=== PATIENT | female | born 1960 | race Caucasian/White ===

== ENCOUNTER 2018-07-17 08:12 | Observation (INO) | payer OTHER ==
--- NOTE | 2018-07-17 08:57 | ED ---
General Adult HPI - General Chief complaint: Chest Pain Stated complaint: Chest Pain Time Seen by Provider: 07/17/18 08:35 Source: patient, RN notes reviewed Mode of arrival: wheelchair Limitations: no limitations - History of Present Illness Initial comments: Patient is a pleasant 57-year-old female presenting to the emergency Department with complaints of chest discomfort. Patient has not felt well for the past couple patient has heaviness in her chest. Patient has had some chills and sweats. No nausea vomiting. No dyspnea. Patient does have a mild chronic cough which is unchanged. No leg pain or leg swelling. No history of similar symptoms previously. No radiation of discomfort. Discomfort is currently 5/10. - Related Data Home Medications Medication Instructions Recorded Confirmed ALPRAZolam [Xanax] 0.5 mg PO DAILY PRN 07/17/18 07/17/18 Citalopram Hydrobromide [CeleXA] 20 mg PO HS 07/17/18 07/17/18 Dm/Acetaminophen/Doxylamine [Vicks 15 ml PO Q6H PRN 07/17/18 07/17/18 Nyquil Cold-Flu Liquid] Allergies Allergy/AdvReac Type Severity Reaction Status Date / Time No Known Allergies Allergy Verified 07/17/18 09:24 Review of Systems ROS Statement: Those systems with pertinent positive or pertinent negative responses have been documented in the HPI. ROS Other: All systems not noted in ROS Statement are negative. Constitutional: Reports: chills. Denies: fever Eyes: Denies: eye pain ENT: Denies: ear pain Respiratory: Reports: as per HPI Cardiovascular: Reports: chest pain Endocrine: Denies: fatigue Gastrointestinal: Denies: abdominal pain Genitourinary: Denies: dysuria Musculoskeletal: Denies: back pain Skin: Denies: rash Neurological: Denies: weakness Past Medical History Past Medical History: No Reported History History of Any Multi-Drug Resistant Organisms: None Reported Past Surgical History: No Surgical Hx Reported Past Psychological History: Anxiety Smoking Status: Current every day smoker Past Alcohol Use History: None Reported Past Drug Use History: None Reported General Exam Limitations: no limitations General appearance: alert, in no apparent distress Head exam: Present: atraumatic Eye exam: Present: normal appearance Neck exam: Present: normal inspection Respiratory exam: Present: normal lung sounds bilaterally. Absent: chest wall tenderness Cardiovascular Exam: Present: regular rate, normal rhythm Expanded Peripheral pulses: 2+: Radial (R), Radial (L), Posterior Tibialis (R), Posterior Tibialis (L), Dorsalis Pedis (R), Dorsalis Pedis (L) GI/Abdominal exam: Present: soft. Absent: tenderness Extremities exam: Present: normal inspection. Absent: pedal edema, calf tenderness Neurological exam: Present: alert Psychiatric exam: Present: normal affect, normal mood Skin exam: Present: normal color Course Vital Signs 07/17/18 07/17/18 07/17/18 08:15 09:15 10:56 Temperature 98.6 F Pulse Rate 89 89 77 Respiratory 18 18 18 Rate Blood Pressure 135/78 171/97 134/79 O2 Sat by Pulse 96 97 98 Oximetry EKG Findings - EKG Comments: EKG Findings:: Normal sinus rhythm 86. MS 148. QRS 92. QT 374. QTC 447. Normal axis. Normal QRS. No acute ST change. Medical Decision Making - Medical Decision Making Patient reevaluated and resting comfortably in bed. Patient and family updated on results and plan. Case was discussed in detail with Dr. Hdez, who will admit for - Lab Data Result diagrams: 07/17/18 08:38 07/17/18 08:38 Lab Results 07/17/18 07/17/18 07/17/18 Range/Units 08:38 08:38 08:38 WBC 10.4 (3.8-10.6) k/uL RBC 4.83 (3.80-5.40) m/uL Hgb 14.9 (11.4-16.0) gm/dL Hct 45.2 (34.0-46.0) % MCV 93.6 (80.0-100.0) fL MCH 30.8 (25.0-35.0) pg MCHC 32.9 (31.0-37.0) g/dL RDW 12.9 (11.5-15.5) % Plt Count 271 (150-450) k/uL Neutrophils % 78 % Lymphocytes % 15 % Monocytes % 5 % Eosinophils % 1 % Basophils % 0 % Neutrophils # 8.1 H (1.3-7.7) k/uL Lymphocytes # 1.6 (1.0-4.8) k/uL Monocytes # 0.5 (0-1.0) k/uL Eosinophils # 0.1 (0-0.7) k/uL Basophils # 0.0 (0-0.2) k/uL PT (9.0-12.0) sec INR (<1.2) APTT (22.0-30.0) sec Sodium 141 (137-145) mmol/L Potassium 4.2 (3.5-5.1) mmol/L Chloride 110 H (98-107) mmol/L Carbon Dioxide 25 (22-30) mmol/L Anion Gap 6 mmol/L BUN 9 (7-17) mg/dL Creatinine 0.60 (0.52-1.04) mg/dL Est GFR (CKD-EPI)AfAm >90 (>60 ml/min/1.73 sqM) Est GFR (CKD-EPI)NonAf >90 (>60 ml/min/1.73 sqM) Glucose 92 (74-99) mg/dL Calcium 9.0 (8.4-10.2) mg/dL Magnesium 2.0 (1.6-2.3) mg/dL Total Bilirubin 1.2 (0.2-1.3) mg/dL AST 19 (14-36) U/L ALT 14 (9-52) U/L Alkaline Phosphatase 92 (38-126) U/L Total Creatine Kinase 52 (30-135) U/L CK-MB (CK-2) 1.0 (0.0-2.4) ng/mL CK-MB (CK-2) Rel Index 1.9 Troponin I <0.012 (0.000-0.034) ng/mL Total Protein 6.5 (6.3-8.2) g/dL Albumin 3.6 (3.5-5.0) g/dL 07/17/18 Range/Units 08:38 WBC (3.8-10.6) k/uL RBC (3.80-5.40) m/uL Hgb (11.4-16.0) gm/dL Hct (34.0-46.0) % MCV (80.0-100.0) fL MCH (25.0-35.0) pg MCHC (31.0-37.0) g/dL RDW (11.5-15.5) % Plt Count (150-450) k/uL Neutrophils % % Lymphocytes % % Monocytes % % Eosinophils % % Basophils % % Neutrophils # (1.3-7.7) k/uL Lymphocytes # (1.0-4.8) k/uL Monocytes # (0-1.0) k/uL Eosinophils # (0-0.7) k/uL Basophils # (0-0.2) k/uL PT 9.9 (9.0-12.0) sec INR 1.0 (<1.2) APTT 22.9 (22.0-30.0) sec Sodium (137-145) mmol/L Potassium (3.5-5.1) mmol/L Chloride (98-107) mmol/L Carbon Dioxide (22-30) mmol/L Anion Gap mmol/L BUN (7-17) mg/dL Creatinine (0.52-1.04) mg/dL Est GFR (CKD-EPI)AfAm (>60 ml/min/1.73 sqM) Est GFR (CKD-EPI)NonAf (>60 ml/min/1.73 sqM) Glucose (74-99) mg/dL Calcium (8.4-10.2) mg/dL Magnesium (1.6-2.3) mg/dL Total Bilirubin (0.2-1.3) mg/dL AST (14-36) U/L ALT (9-52) U/L Alkaline Phosphatase (38-126) U/L Total Creatine Kinase (30-135) U/L CK-MB (CK-2) (0.0-2.4) ng/mL CK-MB (CK-2) Rel Index Troponin I (0.000-0.034) ng/mL Total Protein (6.3-8.2) g/dL Albumin (3.5-5.0) g/dL - Radiology Data Radiology results: image reviewed (Chest x-ray does show some peribronchial cuffing that could represent chronic or acute bronchitis or asthma.) Disposition Clinical Impression: Chest pain Disposition: ADMITTED IP TO THIS HOSP Is patient prescribed a controlled substance at d/c from ED?: No Referrals: Johnathon Gonzalez MD [Primary Care Provider] - 1-2 days Decision Time: 11:38
[2018-07-17] MEDS ORDERED: ASPIRIN 81 MG PO STA (09:10)
[2018-07-17] MEDS ORDERED: NITROGLYCERIN SL TABS 0.4 MG TAB SUBLINGUAL STA (09:10)
--- NOTE | 2018-07-17 09:15 | XR ---
EXAMINATION TYPE: XR chest 2V DATE OF EXAM: 07/17/2018 COMPARISON: None HISTORY: 14-year-old female with chest pain TECHNIQUE: Frontal and lateral views FINDINGS: The cardiomediastinal silhouette, aorta, and pulmonary vasculature are within normal limits. Peribron chial cuffing is present with some strandy basilar atelectasis. No consolidation or pleural effusion. IMPRESSION: Peribronchial cuffing could be chronic or could reflect bronchitis or asthma.
[2018-07-17 09:17] LABS: Basophils % (A) 0 %; Eosinophils # (A) 0.1 k/uL (0-0.7); Eosinophils % (A) 1 %; HCT 45.2 % (34.0-46.0); HGB 14.9 gm/dL (11.4-16.0); Lymphocytes # (A) 1.6 k/uL (1.0-4.8); Lymphocytes % (A) 15 %; MCH 30.8 pg (25.0-35.0); MCHC 32.9 g/dL (31.0-37.0); MCV 93.6 fL (80.0-100.0); Mean Platelet Volume 6.3; Monocytes # (A) 0.5 k/uL (0-1.0); Monocytes % (A) 5 %; Neutrophils # (A) 8.1 k/uL (1.3-7.7); Neutrophils % (A) 78 %; Platelet Count 271 k/uL (150-450); RBC 4.83 m/uL (3.80-5.40); RDW 12.9 % (11.5-15.5); WBC 10.4 k/uL (3.8-10.6)
[2018-07-17 09:27] LABS: ALT 14 U/L (9-52); AST 19 U/L (14-36); Albumin 3.6 g/dL (3.5-5.0); Alkaline Phosphatase 92 U/L (38-126); Anion Gap 6 mmol/L; Blood Urea Nitrogen 9 mg/dL (7-17); Carbon Dioxide 25 mmol/L (22-30); Chloride 110 mmol/L (98-107); Glucose 92 mg/dL (74-99); Potassium 4.2 mmol/L (3.5-5.1); Sodium 141 mmol/L (137-145); Total Bilirubin 1.2 mg/dL (0.2-1.3); Total Protein 6.5 g/dL (6.3-8.2)
[2018-07-17 09:31] LABS: Partial Thromboplastin Time 22.9 sec (22.0-30.0); Prothrombin Time 9.9 sec (9.0-12.0)
[2018-07-17 09:48] LABS: Creatine Kinase 52 U/L (30-135)
[2018-07-17 10:00] LABS: Troponin I <0.012 ng/mL (0.000-0.034)
[2018-07-17] MEDS ORDERED: NITROGLYCERIN SL TABS 0.4 MG TAB SUBLINGUAL PRN (11:39)
[2018-07-17] MEDS ORDERED: ALPRAZolam 0.5 MG TAB PO PRN (12:34)
--- NOTE | 2018-07-17 13:12 | HP ---
HISTORY AND PHYSICAL DATE OF ADMISSION: 07/17/2018 DATE OF SERVICE: 07/17/2018. PRESENTING COMPLAINT: Chest pain. HISTORY OF PRESENTING COMPLAINT: This is a pleasant 57-year-old patient of Dr. Gonzalez out of [place]. The patient has an unremarkable past medical history except for that of anxiety. The patient is long-standing smoker. The patient presented with chest pain that started on earlier today, felt a heaviness in the middle of the chest, did not radiate. There was no shortness of breath. No dizziness. No lightheadedness. Patient did break out in a sweat. The patient has been having though episodes of perspiration for the last 2 days. Sometimes related with exertion. The patient therefore decided to come in. Initial EKG was unremarkable. Troponin was negative. The patient denies any cardiac history. The patient at baseline does have a smoker's cough. REVIEW OF SYSTEMS: CONSTITUTIONAL: Tired. HEENT: None. RESPIRATORY: As above. CARDIOVASCULAR: As above. GASTROINTESTINAL: None. GENITOURINARY: None. MUSCULOSKELETAL: None. DERMATOLOGICAL: None. HEMATOLOGIC: None. LYMPHATIC: None. PSYCHIATRY: Anxiety. NEUROLOGICAL: None. PAST MEDICAL HISTORY: Past medical history of anxiety. PAST SURGICAL HISTORY: Had a female surgery for some scrapping. PSYCH HISTORY: Anxiety. SOCIAL HISTORY: Lives with lives with her . 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 Smokes about 2 packs a day close to 40 years. Denies any alcohol. FAMILY HISTORY: Family history of dementia. HOME MEDICATIONS: 1. Xanax 0.5 daily p.r.n. 2. NyQuil cold flu p.r.n. 3. Celexa 20 mg at bedtime. ALLERGIES: None. PHYSICAL EXAMINATION: On examination, temperature 97, pulse 87, [id number], blood pressure 143/76, pulse ox 100% on room air. GENERAL APPEARANCE: Average built, sitting up, anxious-appearing. EYES: Pupil equal. Conjunctivae normal. HENT: External appearance of nose and ears normal. Oral cavity normal. NECK: JVD not raised. Mass not palpable. RESPIRATORY: Effort normal. LUNGS: Diminished breath sounds. CARDIOVASCULAR: First and second sounds normal. No edema. ABDOMEN: Soft, nontender. Liver and spleen not palpable. LYMPHATIC: No lymph node palpable in the neck or axillae. PSYCHIATRY: Alert and oriented x3. Mood and affect anxious appearing. NEUROLOGICAL: Pupils equal. Cranial nerves grossly intact. Power and sensation grossly intact. INVESTIGATIONS: Reviewed in the context of assessment and plan. EKG tracing personally reviewed by me shows normal sinus rhythm. Chest x-ray film also reviewed by me shows some prominent pulmonary artery. No obvious infiltrates. Troponin is negative. ASSESSMENT: 1. Possible unstable angina in a patient with cardiac sounding presentation with risk factors including smoking. 2. Chronic nicotine dependence, patient active cigarette smoker. 3. Emphysema with minimal symptoms in a patient who is a smoker. PLAN: Serial cardiac enzymes in place. The patient is put on nitro paste and aspirin. Cardiology was consulted. The patient will need a stress test. The patient is advised against smoking, given a nicotine patch. MMODL / IJN: [id number] /
[2018-07-17] MEDS: NITROGLYCERIN OINT 1 INCH/GM PACKET TOPICAL SCH ×2 (13:59→19:30)
[2018-07-17 15:38] LABS: Creatine Kinase 48 U/L (30-135)
[2018-07-17 15:51] LABS: Creatine Kinase MB 0.8 ng/mL (0.0-2.4); Troponin I <0.012 ng/mL (0.000-0.034)
[2018-07-17] MEDS: NICOTINE 21MG/24HR PATCH TRANSDERM SCH (16:39)
[2018-07-17] MEDS: ACETAMINOPHEN TAB 325 MG TAB PO PRN (16:39)
[2018-07-17] MEDS: ENOXAPARIN 40 MG/0.4 ML SYRINGE SQ SCH (16:39)
[2018-07-17] MEDS ORDERED: CITALOPRAM HYDROBROMIDE 20 MG TAB PO SCH (21:00)
[2018-07-17 21:01] LABS: Creatine Kinase 43 U/L (30-135)
[2018-07-17 21:14] LABS: Creatine Kinase MB 0.8 ng/mL (0.0-2.4); Troponin I <0.012 ng/mL (0.000-0.034)
[2018-07-18] MEDS: NITROGLYCERIN OINT 1 INCH/GM PACKET TOPICAL SCH ×2 (01:14→06:12)
[2018-07-18 02:12] LABS: HDL Cholesterol 43 mg/dL (40-60)
[2018-07-18 04:14] VITALS: RESP 18
[2018-07-18] MEDS: ACETAMINOPHEN TAB 325 MG TAB PO PRN (04:14)
[2018-07-18 08:35] LABS: Cholesterol 186 mg/dL (<200)
[2018-07-18 08:36] LABS: LDL Cholesterol,Calculated 119 mg/dL (0-99); Triglycerides 119 mg/dL (<150)
[2018-07-18] MEDS ORDERED: ASPIRIN 325 MG TAB PO SCH (09:00)
--- NOTE | 2018-07-18 09:30 | P.CRDCN ---
History of Present Illness History of present illness: Mrs. Coulter is a pleasant 57-year-old female past medical history significant for depression and heavy daily tobacco use of 2 packs per day. She denies history of coronary artery disease, hypertension, dyslipidemia or diabetes mellitus. She has never seen a vat cleaner for any reason. We have been asked to see her in consultation for chest pain. She states while laying down yesterday she developed a sharp pain in the left precordial region. The pain was worse if she laid on either side but better flat or sitting up. She denies radiation to the arm, back, neck or jaw. For the previous 2 days she noticed she was very hot and sweaty at times with no specific aggravating factor and no chest pain. At the time of the chest pain she was not diaphoretic. She denies shortness of breath, nausea, vomiting, palpitations or dizziness. Her pain has completely subsided and she was able to sleep on her side last night with no pain. EKG indicated sinus mechanism with incomplete right bundle branch block. No acute ST or T-wave abnormalities. Chest x-ray reveals evidence of peribronchial cuffing which could be chronic or reflect acute bronchitis or asthma. Laboratory data reviewed, hemoglobin 14.9, platelets 271, sodium 141, potassium 4.2, magnesium 2.0, creatinine 0.6, cardiac enzymes negative 3, LDL 119, HDL 43. Review of Systems At the time of my exam: CONSTITUTIONAL: Denies fever. Denies chills. EYES: Denies blurred vision. Denies vision changes. Denies eye pain. EARS, NOSE, MOUTH & THROAT: Denies headache. Denies sore throat. Denies ear pain. CARDIOVASCULAR: Denies chest pain. Denies shortness of breath. Denies orthopnea. Denies PND. Denies palpitations. RESPIRATORY: Denies cough. GASTROINTESTINAL: Denies abdominal pain. Denies diarrhea. Denies constipation. Denies nausea. Denies vomiting. MUSCULOSKELETAL: Denies myalgias. INTEGUMENTARY: Denies pruitis. Denies rash. NEUROLOGIC: Denies numbness. Denies tingling. Denies weakness. PSYCHIATRIC: Denies anxiety. Denies depression. ENDOCRINE: Denies fatigue. Denies weight change. Denies polydipsia. Denies polyurina. GENITOURINARY: Denies burning, hematuria or urgency with micturation. HEMATOLOGIC: Denies history of anemia. Denies bleeding. Past Medical History Past Medical History: No Reported History History of Any Multi-Drug Resistant Organisms: None Reported Past Surgical History: No Surgical Hx Reported Additional Past Surgical History / Comment(s): Pt states she has some type of female surgery "scraping" but states it was not a D&C. Past Anesthesia/Blood Transfusion Reactions: No Reported Reaction Smoking Status: Current every day smoker - Past Family History Mother Family Medical History: Dementia Additional Family Medical History / Comment(s): Mother is living. Father Family Medical History: Cancer Additional Family Medical History / Comment(s): Father of cancer. Pt does not know type of cancer. Medications and Allergies Home Medications Medication Instructions Recorded Confirmed Type ALPRAZolam [Xanax] 0.5 mg PO DAILY PRN 07/17/18 07/17/18 History Citalopram Hydrobromide [CeleXA] 20 mg PO HS 07/17/18 07/17/18 History Dm/Acetaminophen/Doxylamine [Vicks 15 ml PO Q6H PRN 07/17/18 07/17/18 History Nyquil Cold-Flu Liquid] Allergies Allergy/AdvReac Type Severity Reaction Status Date / Time No Known Allergies Allergy Verified 07/17/18 09:24 Physical Exam Vitals: Vital Signs Temp Pulse Pulse Resp BP BP Pulse Ox 07/18/18 07:15 98.2 F 73 18 117/79 95 07/18/18 04:00 18 07/18/18 03:40 98.9 F 83 18 128/80 96 07/17/18 23:22 16 07/17/18 22:55 97.6 F 73 16 121/80 97 07/17/18 20:02 95 07/17/18 20:00 18 07/17/18 19:35 98.4 F 73 18 104/69 95 07/17/18 15:53 98.3 F 72 18 128/84 96 07/17/18 12:05 98.0 F 73 18 129/77 95 07/17/18 12:02 97.0 F L 87 18 143/76 100 07/17/18 10:56 77 18 134/79 98 07/17/18 09:15 89 18 171/97 97 Intake and Output 07/17/18 07/18/1818 22:59 06:59 14:59 Intake Total 200 Balance 200 Intake: Oral 200 Other: Voiding Method Toilet Toilet # Voids 1 2 Blood pressure 117/79 heart rate 73 afebrile maintaining oxygen saturation on room air GENERAL: This is a 57-year-old female in no apparent distress at the time of my examination. HEENT: Head is atraumatic, normocephalic. Pupils are equal, round. Sclerae anicteric. Conjunctivae are clear. Mucous membranes of the mouth are moist. Neck is supple. There is no jugular venous distention. No carotid bruit is heard. LUNGS: Clear to auscultation no wheezes, rales or rhonchi. No chest wall tenderness is noted on palpation or with deep breathing. Diminished bilaterally. HEART: Regular rate and rhythm without murmurs, rubs or gallops. S1 and S2 heard. ABDOMEN: Soft, nontender. Bowel sounds are heard. No organomegaly noted. EXTREMITIES: No evidence of peripheral edema and no calf tenderness noted. VASCULAR: Radial and dorsalis pedis pulses palpated, no evidence of clubbing. NEUROLOGIC: Patient is awake, alert and oriented x3. Results 07/17/18 08:38 07/17/18 08:38 Cardiac Enzymes 07/17/18 07/17/18 07/17/18 Range/Units 08:38 08:38 14:55 AST 19 (14-36) U/L CK-MB (CK-2) 1.0 0.8 (0.0-2.4) ng/mL Troponin I <0.012 <0.012 (0.000-0.034) ng/mL 07/17/18 Range/Units 20:19 AST (14-36) U/L CK-MB (CK-2) 0.8 (0.0-2.4) ng/mL Troponin I <0.012 (0.000-0.034) ng/mL Coagulation 07/17/18 Range/Units 08:38 PT 9.9 (9.0-12.0) sec APTT 22.9 (22.0-30.0) sec Lipids 07/17/18 Range/Units 08:38 Triglycerides <15 (<150) mg/dL Cholesterol <50 (<200) mg/dL HDL Cholesterol 43 (40-60) mg/dL CBC 07/17/18 Range/Units 08:38 WBC 10.4 (3.8-10.6) k/uL RBC 4.83 (3.80-5.40) m/uL Hgb 14.9 (11.4-16.0) gm/dL Hct 45.2 (34.0-46.0) % Plt Count 271 (150-450) k/uL Comprehensive Metabolic Panel 07/17/18 Range/Units 08:38 Sodium 141 (137-145) mmol/L Potassium 4.2 (3.5-5.1) mmol/L Chloride 110 H (98-107) mmol/L Carbon Dioxide 25 (22-30) mmol/L BUN 9 (7-17) mg/dL Creatinine 0.60 (0.52-1.04) mg/dL Glucose 92 (74-99) mg/dL Calcium 9.0 (8.4-10.2) mg/dL AST 19 (14-36) U/L ALT 14 (9-52) U/L Alkaline Phosphatase 92 (38-126) U/L Total Protein 6.5 (6.3-8.2) g/dL Albumin 3.6 (3.5-5.0) g/dL Current Medications Generic Name Dose Route Start Last Admin Trade Name Freq PRN Reason Stop Dose Admin Acetaminophen 650 mg 07/17/18 16:25 07/18/18 04:14 Tylenol Tab PO 650 mg Q4HR PRN Administration Fever and/ or MILD Pain Alprazolam 0.5 mg 07/17/18 12:34 Xanax PO DAILY PRN Anxiety Aspirin 325 mg 07/18/18 09:00 Aspirin PO DAILY MARGARITA Citalopram Hydrobromide 20 mg 07/17/18 21:00 07/17/18 19:45 Celexa PO 20 mg HS MARGARITA Administration Enoxaparin Sodium 40 mg 07/17/18 12:45 07/17/18 16:39 Lovenox SQ 40 mg DAILY MARGARITA Administration Nicotine 1 patch 07/17/18 12:45 07/17/18 16:39 Habitrol 21mg/24hr Patch TRANSDERM 1 patch DAILY MARGARITA Administration Nitroglycerin 0.4 mg 07/17/18 11:39 Nitrostat SUBLINGUAL Q5M PRN Chest Pain Intake and Output 07/17/18 07/18/18 07/18/18 22:59 06:59 14:59 Intake Total 200 Balance 200 Intake: Oral 200 Other: Voiding Method Toilet Toilet # Voids 1 2 07/17/18 08:38 07/17/18 08:38 Assessment and Plan Assessment: ASSESSMENT Chest pain, atypical for angina. An acute coronary event has been ruled out with no EKG evidence of ischemia and negative cardiac enzymes. Chronic, heavy tobacco dependence. Dyslipidemia PLAN An acute event has been ruled out. Obtain 2D echocardiogram and doppler study to assess cardiac structure and function. Perform stress echocardiogram to assess for stress induced ischemia. If stress test is normal she is stable from a cardiac perspective. Smoking cessation recommended. Thank you kindly for this consultation. Nurse Practitioner note has been reviewed, I agree with a documented findings and plan of care. Patient was seen and examined.
[2018-07-18] MEDS: ENOXAPARIN 40 MG/0.4 ML SYRINGE SQ SCH (09:53)
[2018-07-18] MEDS: NICOTINE 21MG/24HR PATCH TRANSDERM SCH (09:54)
--- NOTE | 2018-07-18 10:11 | ECHOF ---
Referral Reason:cp MEASUREMENTS -------- HEIGHT: 162.6 cm WEIGHT: 78.5 kg BP: IVSd: 0.9 cm (0.6 - 1.1) LVIDd: 3.9 cm (3.9 - 5.3) LVPWd: 1.1 cm (0.6 - 1.1) IVSs: 1.2 cm LVIDs: 2.1 cm LVPWs: 1.3 cm Ao Diam: 3.1 cm (2.0 - 3.7) AV Cusp: 1.7 cm (1.5 - 2.6) LA Diam: 2.4 cm (2.7 - 3.8) MV EXCURSION: 17.007 mm (> 18.000) MV EF SLOPE: 132 mm/s (70 - 150) EPSS: 0.4 cm MV E Chava: 1.12 m/s MV DecT: 214 ms MV A Chava: 1.06 m/s MV E/A Ratio: 1.06 RAP: 5.00 mmHg RVSP: 9.49 mmHg FINDINGS -------- Sinus rhythm. This was a technically difficult study with suboptimal views. The left ventricular size is normal. Left ventricular wall thickness is normal. Overall left vent ricular systolic function is normal with, an EF between 55 - 60 %. The right ventricle is normal in size and function. The left atrium is normal in size. The right atrium is normal in size. Lumason used The aortic valve is trileaflet and appears structurally normal. There is trace mitral regurgitation. Trace tricuspid regurgitation present. The right ventricular systolic pressure, as measured by Dopp ler, is 9.49mmHg. Pulmonic valve appears structurally normal. The aortic root size is normal. The pericardium is normal. CONCLUSIONS -------- 1. Sinus rhythm. 2. This was a technically difficult study with suboptimal views. 3. The left ventricular size is normal. 4. Left ventricular wall thickness is normal. 5. Overall left ventricular systolic function is normal with, an EF between 55 - 60 %. 6. The right ventricle is normal in size and function. 7. The left atrium is normal in size. 8. The right atrium is normal in size. 9. Lumason used 10. The aortic valve is trileaflet and appears structurally normal. 11. There is trace mitral regurgitation. 12. Trace tricuspid regurgitation present. 13. The right ventricular systolic pressure, as measured by Doppler, is 9.49mmHg. 14. Pulmonic valve appears structurally normal. 15. The aortic root size is normal. 16. The pericardium is normal. COVER CUTTER: Leny Salomon RDCS
[2018-07-18 11:39] VITALS: BP 131/83; PULSE 87; TEMP 98.1
--- NOTE | 2018-07-18 12:05 | P.STRESS ---
- Stress Test Note Stress Test Results/Findings: Exam Performed: stress echo exercise with con Exam Date: 07/18/18 Reason for Exam: Chest Pain Height: 5 ft 4 in Weight: 78.9 kg Protocol: Stress Echo Stage: 2 Duration of Exercise: 7:31 Resting Heart Rate: 85 Resting Blood Pressure: 136/78 Maximum Achieved Heart Rate: 144 Maximum Achieved Blood Pressure: 167/74 85% PMHR: 138 100% PMHR: 162 METS: 8.9 Technologist Comment: Stress Test Results/Findings: This is a 57-year-old female who was admitted to the hospital with chest pain and shortness of breath. She has history of smoking. Her chest pains are clinically atypical. Stress data: Baseline EKG showed sinus rhythm with normal IN interval and QRS duration. Blood pressure at rest is 136/78 with a pulse rate of 85. Patient walked on the Aníbal protocol for 7 minutes and 31 seconds achieving a maximal heart rate of 144 with a blood pressure 135/92. EKGs taken during and after the exercise did not reveal any significant changes from the baseline. New Echo data: Baseline echo images showed normal wall motion and thickening. Exercise echo images showed augmentation of wall motion and thickening in all segments. Final Impression: #1. Negative stress test #2. Negative stress echo.
--- NOTE | 2018-07-18 12:56 | ECHOS ---
tress Test Results/Findings: Exam Performed: stress echo exercise with con Exam Date: 07/18/18 Reason for Exam: Chest Pain Height: 5 ft 4 in Weight: 78.9 kg Protocol: Stress Echo Stage: 2 Duration of Exercise: 7:31 Resting Heart Rate: 85 Resting Blood Pressure: 136/78 Maximum Achieved Heart Rate: 144 Maximum Achieved Blood Pressure: 167/74 85% PMHR: 138 100% PMHR: 162 METS: 8.9 Technologist Comment: Stress Test Results/Findings: This is a 57-year-old female who was admitted to the hospital with chest pain and shortness of breath. She has history of smoking. Her chest pains are clinically atypical. Stress data: Baseline EKG showed sinus rhythm with normal [place] interval and QRS duration. Blood pressure at rest is 136/78 with a pulse rate of 85. Patient walked on the Aníbal protocol for 7 minutes and 31 seconds achieving a maximal heart rate of 144 with a blood pressure 135/92. EKGs taken during and after the exercise did not reveal any significant changes from the baseline. New Echo data: Baseline echo images showed normal wall motion and thickening. Exercise echo images showed augmentation of wall motion and thickening in all segments. Final Impression: #1. Negative stress test #2. Negative stress echo. ISABEL
--- NOTE | 2018-07-21 22:23 | DS ---
DISCHARGE SUMMARY DATE OF ADMISSION: 07/17/2018 DATE OF DISCHARGE: 07/18/2018 FINAL DIAGNOSES: 1. Anterior chest wall pain could be musculoskeletal. 2. Chronic nicotine dependence, patient an active cigarette smoker. 3. Emphysema with minimal symptoms. HOSPITAL COURSE: This patient presented with anterior chest wall pain. The patient did undergo a stress echocardiogram that was negative. Did explain to the patient and the that the patient risk factors on presentation could be compatible with angina, musculoskeletal still possible. Patient was advised against smoking. The patient did have a stress echocardiogram that was negative. 2D echo was unremarkable with preserved EF. PHYSICAL EXAMINATION: Temperature 98.1, pulse 87, respiratory 18, blood pressure 113/83. LUNGS: Decreased breath sounds. CARDIOVASCULAR: 1st and 2nd sounds normal. CONSULTATION: Dr. Bedoya from Cardiology. DISCHARGE MEDICATIONS: 1. Xanax 0.5 p.o. daily p.r.n. 2. Celexa 20 mg q.h.s. 3. Aspirin 81 mg a day. 4. Nicotine 20 mg patch. 5. Nitrostat 0.4 sublingual q.5 p.r.n. Follow up with Dr. Gonzalez in [place] in 1 week. Follow up with Dr. Bedoya in 10 days. Follow up with Dr. Gonzalez. MMODL / IJN: [id number] /
== END 2018-07-18 13:55 | disposition home or self-care (01) ==
LOC: EC 08:12 → 3OBS 11:39
PROVIDERS: ADMIT Hospitalist; ATTEND Hospitalist
DX: R07.89 Other chest pain (principal); J43.9 Emphysema, unspecified; R61 Generalized hyperhidrosis; R68.83 Chills (without fever); E78.5 Hyperlipidemia, unspecified; F41.9 Anxiety disorder, unspecified; F17.210 Nicotine dependence, cigarettes, uncomplicated; Z79.899 Other long term (current) drug therapy; Z82.0 Family history of epilepsy and other diseases of the nervous system; Z80.9 Family history of malignant neoplasm, unspecified
CPT/HCPCS: 96372 ×2; 99285; 36415; 94760; 93005; 93306; 93351; 80061; 80053; 82550; 82553; 83735; 84484; 85025; 85610; 85730; 71046; G0378 ×2; S4990 ×2; J1650 ×2; Q9950

== ENCOUNTER → 2019-06-06 | Outpatient (CLI) | payer OTHER ==
--- NOTE | 2019-06-06 19:54 | MR ---
MRI left leg HISTORY: Trauma and pain Multiplanar multisequence imaging obtained through the left leg Correlation to plain film dated 01/12/2019 Anterior to the patella there is a focus of intermediate signal on T1-weighted sequences, increased s ignal on T2-weighted sequences, similar signal change present within the soft tissues anterior to the tibia on axial image #3, sagittal image 22. Bone marrow signal is maintained. Small amount of knee j oint fluid is present. Question some increased signal along the musculature of the gastrocnemius dist ally. No fracture or dislocation. IMPRESSION: Findings most likely represent soft tissue ecchymosis due to patient's trauma. Question s ome muscle edema. No fracture or dislocation.
== END | disposition home or self-care (01) ==
LOC: RADMRIMAIN 13:03
PROVIDERS: ATTEND Orthopaedic Surgery Sports Medicine
DX: S89.92XA Unspecified injury of left lower leg, initial encounter (principal); Z68.30 Body mass index [BMI] 30.0-30.9, adult; F17.210 Nicotine dependence, cigarettes, uncomplicated